=== PATIENT | female | born 1970 | race American Indian/Alaskan Native ===

== ENCOUNTER 2017-02-14 06:21 | Day surgery (SDC) | payer MEDICAID ==
[2017-02-14] MEDS ORDERED: WATER FOR IRRIG STERILE IR ONE (07:31)
--- NOTE | 2017-02-14 07:54 | Discharge Summary ---
Providers - Providers Date of discharge: 02/14/17 Attending physician: DELTA PACHECO Hospitalization Condition: Good Procedures: egd Disposition: - TO HOME OR SELFCARE Core Measure Documentation - Palliative Care Palliative Care/ Comfort Measures: Not Applicable - Core Measures Any of the following diagnoses?: none Exam - Physical Exam Narrative exam: unchanged from pre-op Plan Activity: no restrictions Weight Bearing Status: Full Weight Bearing Diet: regular
[2017-02-14] MEDS ORDERED: PEPCID IV ONE (07:55)
--- NOTE | 2017-02-14 08:02 | Anesthesia Consultation ---
Anesthesia Consult and Med Hx Date of service: 02/14/17 - Airway Anesthetic Teeth Evaluation: Good ROM Head & Neck: Adequate Mental/Hyoid Distance: Adequate Mallampati Class: Class II Intubation Access Assessment: Possibly Difficult - Pulmonary Exam CTA: Yes - Cardiac Exam Cardiac Exam: RRR - Pre-Operative Health Status ASA Pre-Surgery Classification: ASA3 - Pulmonary Hx Smoking: Yes Hx Asthma: Yes COPD: Yes Home Oxygen Therapy: No Hx Sleep Apnea: Yes (CPAP) - Cardiovascular System Hx Hypertension: Yes (4 years) - Central Nervous System Hx Psychiatric Problems: Yes - Gastrointestinal Hx Gastroesophageal Reflux Disease: No - Hematic Hx Anemia: Yes - Other Systems Hx Alcohol Use: No Hx Substance Use: No Hx Cancer: No Hx Obesity: Yes (morbid)
--- NOTE | 2017-02-14 08:03 | Anesthesia Day of Surgery ---
Anesthesia Day of Surgery - Day of Surgery Patient Examined: Yes Patient H&P Reviewed: Yes Patient is NPO: Yes
[2017-02-14] MEDS ORDERED: PEPCID IV NR (09:00)
[2017-02-14] MEDS ORDERED: NACL 0.9% 1000 ML 1,000 ML IV SCH (09:00)
--- NOTE | 2017-02-14 10:06 | Operative Report ---
Operative Report Operative Report: OPERATIVE REPORT - EGD DATE 02/14/17 SURGERY: Upper endoscopy. SURGEON: Waldo Serrano M.D. PROCEDURE: incomplete EGD PRE OP DX: dyspepsia POST OP DX: hiatal hernia, and large food bolus TYPE OF ANESTHESIA: MAC. ESTIMATED BLOOD LOSS: None. COMPLICATIONS: None. SPECIMENS REMOVED: None. FINDINGS: 1. could not complete EGD due to large food bolus obstructing visualization INDICATIONS:INDICATION FOR PROCEDURE: Patient is a 46-year-old female with a long history of morbid obesity. She is planned to have a weight loss procedure and is here for preoperative planning EGD. We are evaluating for any pathology that may explain her symptoms or be a contraindication for bariatric surgery. PROCEDURE DETAILS: After consent was reviewed, patient was taken back to the operating room where patient was placed in the left lateral decubitus position and a bite block was placed in the mouth. After a time-out was called, MAC anesthesia was initiated. I then passed the endoscope into her oropharynx, into her esophagus, visualized the entire esophagus, which was all within normal limits. I then visualized the stomach and there was immediately noticed to be a large food bolus extending from mid stomach through the pylorus. There was not way to visualize the duodenum because of the food. I then retroflexed the scope in the stomach and visualized the hiatus and I could see a small hiatal hernia. I then desufflated the stomach and removed the endoscope. Patient tolerated procedure well and was transferred to recovery room in good and stable condition. Her EGD will need to be repeated on day of surgery prior to the start of the procedure.
[2017-02-14] MEDS ORDERED: DIPRIVAN 10 MG/ML IV ONE (10:10)
--- NOTE | 2017-02-14 10:37 | Post Anesthesia Evaluation ---
- Post Anesthesia Evaluation Patient Participated: Yes Airway Patent: Yes Stable Respiratory Function: Yes Temp > 96.8F: Yes Pain Manageable: Yes Adequeate Hydration: Yes Anesthesia Complications: No
[2017-02-14 11:52] VITALS: BP 107/63
== END 2017-02-14 06:22 | disposition home or self-care (01) ==
LOC: GIO 06:21
PROVIDERS: ATTEND Surgery
DX: K44.9 Diaphragmatic hernia without obstruction or gangrene (principal); J44.9 Chronic obstructive pulmonary disease, unspecified; G47.33 Obstructive sleep apnea (adult) (pediatric); E11.9 Type 2 diabetes mellitus without complications; I10 Essential (primary) hypertension; E78.00 Pure hypercholesterolemia, unspecified; K21.9 Gastro-esophageal reflux disease without esophagitis; M19.90 Unspecified osteoarthritis, unspecified site; D64.9 Anemia, unspecified; F32.9 Major depressive disorder, single episode, unspecified; E66.01 Morbid (severe) obesity due to excess calories; Z68.43 Body mass index [BMI] 50.0-59.9, adult; Z98.890 Other specified postprocedural states; Z79.899 Other long term (current) drug therapy; Z79.84 Long term (current) use of oral hypoglycemic drugs; Z87.891 Personal history of nicotine dependence
CPT/HCPCS: 43235; 81025; 82962; 96374; J2704; J7030

== ENCOUNTER 2019-07-29 12:21 | Outpatient (CLI) | payer OTHER ==
--- NOTE | 2019-07-29 13:34 | XRay Report ---
LUMBAR SPINE 3 VIEWS INDICATION / CLINICAL INFORMATION: MAIN: LOWER BACK PAIN. COMPARISON: None available. FINDINGS: Mild diffuse degenerative change. No other significant skeletal abnormality. Alignment is normal. Signer Name: Suraj De La Cruz MD FACKathy Signed: 07/29/2019 1:30 PM Workstation Name: [id number]
--- NOTE | 2019-07-29 13:35 | XRay Report ---
CHEST 2 VIEWS INDICATION / CLINICAL INFORMATION: CHEST PAIN. COMPARISON: None available. FINDINGS: SUPPORT DEVICES: None. HEART / MEDIASTINUM: Prominent soft tissue in the right paratracheal region LUNGS / PLEURA: No significant pulmonary or pleural abnormality. No pneumothorax. ADDITIONAL FINDINGS: No significant additional findings. IMPRESSION: Prominent soft tissue in the right paratracheal region. CT of the chest with contrast may be helpful for further evaluation if clinically indicated. Signer Name: Suraj De La Cruz MD FACR Signed: 07/29/2019 1:31 PM Workstation Name: [id number]
== END 2019-07-29 12:22 | disposition home or self-care (01) ==
LOC: XRAY 12:21
PROVIDERS: ATTEND Internal Medicine
DX: M47.817 Spondylosis without myelopathy or radiculopathy, lumbosacral region (principal); E11.40 Type 2 diabetes mellitus with diabetic neuropathy, unspecified; J45.909 Unspecified asthma, uncomplicated; G47.30 Sleep apnea, unspecified; F32.9 Major depressive disorder, single episode, unspecified; F41.9 Anxiety disorder, unspecified
CPT/HCPCS: 71046; 72100